=== PATIENT | female | born 1970 | race Caucasian/White ===

== ENCOUNTER 2016-05-18 12:04 | Emergency (ER) | payer OTHER ==
--- NOTE | 2016-05-18 16:25 | ED CLINICAL REPORT ---
Clinical Report - Physicians/Mid Levels [facility] [address] [place] [address] 05/18/2016 12:04 Patient: MELANIE BOONE Time Seen: 14:16 May 18 2016. Arrived- By private vehicle. Historian- patient. HISTORY OF PRESENT ILLNESS Chief Complaint: "GOT THE SHAKES". Wants to stop drug use and drinking. Symptoms started today. The patient has had chills, nausea and abdominal pain. No vomiting, diarrhea or agitation. Not confused. patient here in the ER, with report of substance abuse, drinking and drugs, has been doing over the last 2 years, once to stop use now. Reports pains aches, lightheadedness, nausea. The symptoms are described as mild. REVIEW OF SYSTEMS No headache, dizziness or skin abscess. No difficulty walking. All systems otherwise negative, except as recorded above. PAST HISTORY Problems: Bronchitis. Pedal Edema. Contact Dermatitis. Eauzp-Aavcapagr-Zdqmn Syndrome. Lifestyle / Substance Problems. Pneumonia. Heart Disease. Immunizations. LNMP - Last Normal Menstrual Period. COPD - Chronic Obstructive Pulmonary Disease [RuleOut]. Additional Surgeries: . Medications: None. Allergies: No Known Drug Allergy. SOCIAL HISTORY Alcohol use. (heavy drinking x 2 years, last use of 1/5th this am). History of heavy drug use last use 2 days prior: heroin. Has social support. Has place to stay. ADDITIONAL NOTES The nursing notes have been reviewed. PHYSICAL EXAM Vital Signs: 05/18/2016 12:09 BP: 151/91. HR: 110. RR: 22. O2 saturation: 99%. Temp: 98.8 F. Appearance: Alert. Head: Head atraumatic. Eyes: Pupils equal, round and reactive to light. ENT: Normal ENT inspection. Moist mucous membranes. No trouble handling secretions. The mucous membranes are not dry. Neck: Normal inspection. No meningeal signs. CVS: Normal heart rate and rhythm. Heart sounds normal. Respiratory: No respiratory distress. Abdomen: Soft. No obesity. Skin: Skin warm. Normal skin color. No rash. Neuro: Alert. Oriented X 3. No cerebellar findings. PROGRESS AND PROCEDURES Course of Care: Patient in the ER, with improvement of her symptoms, she is unsure of her plan for desires to stop use of alcohol, as well as heroin. At this time no seizures. No emesis, stable tolerating medications. Attempted IV draw for blood, however unable to do so, patient reports she is a difficult stick. Nonseptic at this time, eloped prior to her instructions, and discussion with me. 05/18/2016 16:09 BP: 149/98. HR: 94. RR: 20. O2 saturation: 99%. Temp: 98 F. Patient is stable. Symptoms better. Patient/family counseled. Disposition: Discharged. CLINICAL IMPRESSION Substance abuse. Substance dependence problems: dependence on alcohol and opiates. INSTRUCTIONS Stay with responsible adult family member (or other responsible adult). No alcohol. Prescription Medications: Zofran (orally disintegrating tablets) 4 mg: take 1 orally every 6 hours for 3 days as needed for nausea. Dispense ten (10). No refill. Substitution is permissible. Motrin 800 mg tablets: take 1 tablet orally every 8 hours for 5 days, as needed for pain. Dispense fifteen (15). No refill. Substitution is permissible. Phenergan 12.5 mg tablets: take 1 orally every 6 hours as needed for nausea. Dispense ten (10). No refill. Substitution is permissible Phenergan 12.5 mg suppositories: insert 1 rectally every 6 hours as needed for nausea or vomiting. Dispense ten (10). No refill. Substitution is permissible Ativan 0.5 mg: take 1 orally every 8 hours for 3 days as needed for anxiety. Dispense ten (10). No refill. OTC Medications: Tylenol ER 650 mg (available over the counter): take 1 orally every 6 hours for 5 days, as needed for pain. Dispense twenty (20). No refill. Substitution is permissible. Imodium 2 mg (available over the counter): for 3 days. Do not exceed 4 per day. Dispense twenty-four (24). No refills. Substitution is permissible. Follow-up: Follow up with your doctor in three. (Electronically signed by Pattie Galdamez P.A.-C 05/18/2016 20:10)
--- NOTE | 2016-05-18 16:25 | ED ORDER SUMMARY ---
..... Patient: MELANIE BOONE [facility] VisitID: [id number] [place] [address] 45y, F Registration Date/Time: 05/18/2016 ORDER SHEET Weight: 95.2 kg (stated) Allergies: No Known Drug Allergy GENERAL ORDERS: CBC w Diff Urgent (13:32 05/18/2016 EKoroleva P.A.-C) (Ack 13:33 LTapper) (Cancelled: Unable to Kjsmqiq05:05 GMarshall R.N.) Ethyl Alcohol Urgent (13:32 05/18/2016 EKoroleva P.A.-C) (Ack 13:33 LTapper) (Cancelled: Unable to Xgabbck01:05 GMarshall R.N.) Vitals (14:37 05/18/2016 EKoroleva P.A.-C) (Ack 14:41 LTapper) (17:05 GMarshall R.N.) Breathalyzer (14:52 05/18/2016 EKoroleva P.A.-C) (17:05 GMarshall R.N.) MEDICATION ORDERS: Zofran ODT PO 4 mg (NOW) (13:31 05/18/2016 EKoroleva P.A.-C) (13:49 GMarshall R.N.) Phenergan PO 25 mg (HIGH ALERT MEDICATION, NOW) (13:31 05/18/2016 EKoroleva P.A.-C) (13:50 GMarshall R.N.) Motrin PO 800 mg (NOW) (13:32 05/18/2016 EKoroleva P.A.-C) (13:50 GMarshall R.N.) Tylenol PO 650 mg (NOW) (13:32 05/18/2016 EKoroleva P.A.-C) (13:50 GMarshall R.N.) IV FLUIDS: ORDER SHEET NOTES: [Electronically signed by Fausto Fabian R.N. (19:45 05/18/2016)] [Electronically signed by Pattie GaldamezAMery-C (20:10 05/18/2016)] [Electronically locked/signed by Fausto Fabian R.N. (19:45 05/18/2016)]
--- NOTE | 2016-05-18 16:25 | ED CLINICAL REPORT ---
Clinical Report - Physicians/Mid Levels [facility] [address] [place] [address] 05/18/2016 12:04 Patient: MELANIE BOONE Time Seen: 14:16 May 18 2016. Arrived- By private vehicle. Historian- patient. HISTORY OF PRESENT ILLNESS Chief Complaint: "GOT THE SHAKES". Wants to stop drug use and drinking. Symptoms started today. The patient has had chills, nausea and abdominal pain. No vomiting, diarrhea or agitation. Not confused. patient here in the ER, with report of substance abuse, drinking and drugs, has been doing over the last 2 years, once to stop use now. Reports pains aches, lightheadedness, nausea. The symptoms are described as mild. REVIEW OF SYSTEMS No headache, dizziness or skin abscess. No difficulty walking. All systems otherwise negative, except as recorded above. PAST HISTORY Problems: Bronchitis. Pedal Edema. Contact Dermatitis. Tjgwl-Rggifoazo-Jfgjl Syndrome. Lifestyle / Substance Problems. Pneumonia. Heart Disease. Immunizations. LNMP - Last Normal Menstrual Period. COPD - Chronic Obstructive Pulmonary Disease [RuleOut]. Additional Surgeries: . Medications: None. Allergies: No Known Drug Allergy. SOCIAL HISTORY Alcohol use. (heavy drinking x 2 years, last use of 1/5th this am). History of heavy drug use last use 2 days prior: heroin. Has social support. Has place to stay. ADDITIONAL NOTES The nursing notes have been reviewed. PHYSICAL EXAM Vital Signs: 05/18/2016 12:09 BP: 151/91. HR: 110. RR: 22. O2 saturation: 99%. Temp: 98.8 F. Appearance: Alert. Head: Head atraumatic. Eyes: Pupils equal, round and reactive to light. ENT: Normal ENT inspection. Moist mucous membranes. No trouble handling secretions. The mucous membranes are not dry. Neck: Normal inspection. No meningeal signs. CVS: Normal heart rate and rhythm. Heart sounds normal. Respiratory: No respiratory distress. Abdomen: Soft. No obesity. Skin: Skin warm. Normal skin color. No rash. Neuro: Alert. Oriented X 3. No cerebellar findings. PROGRESS AND PROCEDURES Course of Care: Patient in the ER, with improvement of her symptoms, she is unsure of her plan for desires to stop use of alcohol, as well as heroin. At this time no seizures. No emesis, stable tolerating medications. Attempted IV draw for blood, however unable to do so, patient reports she is a difficult stick. Nonseptic at this time, eloped prior to her instructions, and discussion with me. 05/18/2016 16:09 BP: 149/98. HR: 94. RR: 20. O2 saturation: 99%. Temp: 98 F. Patient is stable. Symptoms better. Patient/family counseled. Disposition: Discharged. CLINICAL IMPRESSION Substance abuse. Substance dependence problems: dependence on alcohol and opiates. INSTRUCTIONS Stay with responsible adult family member (or other responsible adult). No alcohol. Prescription Medications: Zofran (orally disintegrating tablets) 4 mg: take 1 orally every 6 hours for 3 days as needed for nausea. Dispense ten (10). No refill. Substitution is permissible. Motrin 800 mg tablets: take 1 tablet orally every 8 hours for 5 days, as needed for pain. Dispense fifteen (15). No refill. Substitution is permissible. Phenergan 12.5 mg tablets: take 1 orally every 6 hours as needed for nausea. Dispense ten (10). No refill. Substitution is permissible Phenergan 12.5 mg suppositories: insert 1 rectally every 6 hours as needed for nausea or vomiting. Dispense ten (10). No refill. Substitution is permissible Ativan 0.5 mg: take 1 orally every 8 hours for 3 days as needed for anxiety. Dispense ten (10). No refill. OTC Medications: Tylenol ER 650 mg (available over the counter): take 1 orally every 6 hours for 5 days, as needed for pain. Dispense twenty (20). No refill. Substitution is permissible. Imodium 2 mg (available over the counter): for 3 days. Do not exceed 4 per day. Dispense twenty-four (24). No refills. Substitution is permissible. Follow-up: Follow up with your doctor in three. (Electronically signed by Pattie Galdamez P.A.-C 05/18/2016 20:10)
--- NOTE | 2016-05-18 16:25 | ED NURSING NOTES ---
Clinical Report - Nurses [facility] [place] [address] [address] 05/18/2016 12:04 Patient: MELANIE BOONE TRIAGE Triage time 12:09. Acuity: LEVEL 3. Alert. No acute distress. --12:14 Fausto Fabian R.N. 12:09 05/18/16. BP: 151/91. HR: 110. RR: 22. O2 saturation: 99%. Temp: 98.8 F. Pain level now 02/09. --12:14 Fausto Fabian R.N. Chief Complaint: (Withdrawing from Heroin). --19:44 Fausto Fabian R.N. Weight: 95.2 kg stated. Height/Length: 108 inches Per Patient. BMI: 12.7. --12:13 Fausto Fabian R.N. Medications None. --12:12 Fausto Fabian R.N. Allergies No Known Drug Allergy. --12:12 Fausto Fabian R.N. History Arrived by EMS. Historian: patient. ( Patient states is withdrawing from heroin and alcohol. Has a 1 gram approximately, heroine habit 2-3 times per day, has not used since Wednesday. Believes she is perhaps withdrawing from ETOH as well. Drank 1 pint jaggermister this morning but threw most of it up). This started just prior to arrival. Treatment CLINICAL QUALITY RN: None. SOCIAL HX: Smoker- current status unknown. Alcohol use. History of drug use: heroin. --12:14 Fausto Fabian R.N. PROBLEMS: Bronchitis. Pedal Edema. Contact Dermatitis. Zpbrr-Axtrecihy-Svait Syndrome. Lifestyle / Substance Problems. Pneumonia. Heart Disease. Immunizations. LNMP - Last Normal Menstrual Period. --12:12 Fausto Fabian R.N. COPD - Chronic Obstructive Pulmonary Disease [RuleOut]. --12:12 Fausto Fabian R.N. Interventions ID band on patient. --12:14 Fausto Fabian R.N. PHYSICAL ASSESSMENT ( Pacing. Unable to sit still. States she believes she has been hallucinating.). GENERAL / NEURO / PSYCH: Alert. Oriented X 4. Appears anxious and in distress. RESPIRATORY: Respirations not labored. Breath sounds within normal limits. GI / : Abdomen soft. SKIN: Skin is warm and dry. --12:15 Fausto Fabian R.N. NURSING PROGRESS NOTES 13:49 05/18/2016 Zofran ODT (Ondansetron) PO Oral Disintegrating Tablets 4 mg given. --13:49 Fausto Fabian R.N. 13:50 05/18/2016 Phenergan (Promethazine HCl) PO Tablets 25 mg given. --13:50 Fausto Fabian R.N. 13:50 05/18/2016 Motrin PO Tablets 800 mg given. --13:50 Fausto Fabian R.N. 13:50 05/18/2016 Tylenol (Acetaminophen) PO Tablets 650 mg given. --13:50 Fausto Fabian R.N. 14:45 05/18/16. BP: 147/91 (regular adult cuff) taken on the right arm, via an automated monitor, while sitting. HR: 105. RR: 20. O2 saturation: 98% on room air. Temp: 99.4 F (oral). RN notified. Pain level now: 01/10. --14:47 Chery Cali ( breathalyzer .000). --14:57 Jose Juan Morrison ( Several more unsuccessful attempts were made at venipuncture.). --16:11 Fausto Fabian R.N. 16:09 05/18/16. BP: 149/98. HR: 94. RR: 20. O2 saturation: 99%. Temp: 98 F. Pain level now 11/09. --16:11 Fausto Fabian R.N. DISPOSITION / DISCHARGE ( Patient eloped. Before she eloped, I had a candid conversation with patient about her plan and options. Patient believes she is far enough into her withdrawal that it would be pointless to go to med detox at [place]. States I will try to do it with Ibuprofen, Tylenol and Benedryl. States I think I can do this. Appears to have strong support system.). --19:44 Fausto Fabian R.N. Locked/Released at 05/18/2016 19:45 by Fausto Fabian R.N.
--- NOTE | 2016-05-18 16:25 | ED ORDER SUMMARY ---
..... Patient: MELANIE BOONE OrderSheet [facility] VisitID: [id number] [place] [address] 45y, F Registration Date/Time: 05/18/2016 ORDER SHEET Weight: 95.2 kg (stated) Allergies: No Known Drug Allergy GENERAL ORDERS: CBC w Diff Urgent (13:32 05/18/2016 EKoroleva P.A.-C) (Ack 13:33 LTapper) (Cancelled: Unable to Bedrzka79:05 GMarshall R.N.) Ethyl Alcohol Urgent (13:32 05/18/2016 EKoroleva P.A.-C) (Ack 13:33 LTapper) (Cancelled: Unable to Nmewkql48:05 GMarshall R.N.) Vitals (14:37 05/18/2016 EKoroleva P.A.-C) (Ack 14:41 LTapper) (17:05 GMarshall R.N.) Breathalyzer (14:52 05/18/2016 EKoroleva P.A.-C) (17:05 GMarshall R.N.) MEDICATION ORDERS: Zofran ODT PO 4 mg (NOW) (13:31 05/18/2016 EKoroleva P.A.-C) (13:49 GMarshall R.N.) Phenergan PO 25 mg (HIGH ALERT MEDICATION, NOW) (13:31 05/18/2016 EKoroleva P.A.-C) (13:50 GMarshall R.N.) Motrin PO 800 mg (NOW) (13:32 05/18/2016 EKoroleva P.A.-C) (13:50 GMarshall R.N.) Tylenol PO 650 mg (NOW) (13:32 05/18/2016 EKoroleva P.A.-C) (13:50 GMarshall R.N.) IV FLUIDS: ORDER SHEET NOTES: [Electronically signed by Fausto Fabian R.N. (19:45 05/18/2016)] [Electronically signed by Pattie GaldamezAMery-C (20:10 05/18/2016)] [Electronically locked/signed by Fausto Fabian R.N. (19:45 05/18/2016)]
--- NOTE | 2016-05-18 16:25 | ED NURSING NOTES ---
Clinical Report - Nurses [facility] [place] [address] 05/18/2016 12:04 Patient: MELANIE BOONE TRIAGE Triage time 12:09. Acuity: LEVEL 3. Alert. No acute distress. --12:14 Fausto Fabian R.N. 12:09 05/18/16. BP: 151/91. HR: 110. RR: 22. O2 saturation: 99%. Temp: 98.8 F. Pain level now 02/09. --12:14 Fausto Fabian R.N. Chief Complaint: (Withdrawing from Heroin). --19:44 Fausto Fabian R.N. Weight: 95.2 kg stated. Height/Length: 108 inches Per Patient. BMI: 12.7. --12:13 Fausto Fabian R.N. Medications None. --12:12 Fausto Fabian R.N. Allergies No Known Drug Allergy. --12:12 Fausto Fabian R.N. History Arrived by EMS. Historian: patient. ( Patient states is withdrawing from heroin and alcohol. Has a 1 gram approximately, heroine habit 2-3 times per day, has not used since Wednesday. Believes she is perhaps withdrawing from ETOH as well. Drank 1 pint jaggermister this morning but threw most of it up). This started just prior to arrival. Treatment DEVOPS ARCHITECT: None. SOCIAL HX: Smoker- current status unknown. Alcohol use. History of drug use: heroin. --12:14 Fausto Fabian R.N. PROBLEMS: Bronchitis. Pedal Edema. Contact Dermatitis. Qxyen-Uapeqxvox-Cwmxy Syndrome. Lifestyle / Substance Problems. Pneumonia. Heart Disease. Immunizations. LNMP - Last Normal Menstrual Period. --12:12 Fausto Fabian R.N. COPD - Chronic Obstructive Pulmonary Disease [RuleOut]. --12:12 Fausto Fabian R.N. Interventions ID band on patient. --12:14 Fausto Fabian R.N. PHYSICAL ASSESSMENT ( Pacing. Unable to sit still. States she believes she has been hallucinating.). GENERAL / NEURO / PSYCH: Alert. Oriented X 4. Appears anxious and in distress. RESPIRATORY: Respirations not labored. Breath sounds within normal limits. GI / : Abdomen soft. SKIN: Skin is warm and dry. --12:15 Fausto Fabian R.N. NURSING PROGRESS NOTES 13:49 05/18/2016 Zofran ODT (Ondansetron) PO Oral Disintegrating Tablets 4 mg given. --13:49 Fausto Fabian R.N. 13:50 05/18/2016 Phenergan (Promethazine HCl) PO Tablets 25 mg given. --13:50 Fausto Fabian R.N. 13:50 05/18/2016 Motrin PO Tablets 800 mg given. --13:50 Fausto Fabian R.N. 13:50 05/18/2016 Tylenol (Acetaminophen) PO Tablets 650 mg given. --13:50 Fausto Fabian R.N. 14:45 05/18/16. BP: 147/91 (regular adult cuff) taken on the right arm, via an automated monitor, while sitting. HR: 105. RR: 20. O2 saturation: 98% on room air. Temp: 99.4 F (oral). RN notified. Pain level now: 01/10. --14:47 Chery Cali ( breathalyzer .000). --14:57 Jose Juan Morrison ( Several more unsuccessful attempts were made at venipuncture.). --16:11 Fausto Fabian R.N. 16:09 05/18/16. BP: 149/98. HR: 94. RR: 20. O2 saturation: 99%. Temp: 98 F. Pain level now 11/09. --16:11 Fausto Fabian R.N. DISPOSITION / DISCHARGE ( Patient eloped. Before she eloped, I had a candid conversation with patient about her plan and options. Patient believes she is far enough into her withdrawal that it would be pointless to go to med detox at [place]. States I will try to do it with Ibuprofen, Tylenol and Benedryl. States I think I can do this. Appears to have strong support system.). --19:44 Fausto Fabian R.N. Locked/Released at 05/18/2016 19:45 by Fausto Fabian R.N.
--- NOTE | 2016-05-18 20:11 | ED MAR SUMMARY ---
..... Medication Administration Record [facility] [address] [place] [address] Patient: MELANIE BOONE Visit ID: [id number] 45y, F Weight: 95.2 kg Height/Length: 108 in BMI: 12.7 ALLERGIES: No Known Drug Allergy Given 13:49 05/18/2016 Fausto Fabian R.N. Medication Administered: ZOFRAN ODT [PO] (ONDANSETRON), Dose: 4 mg Oral Disintegrating Tablets PO. Medication Ordered: Zofran ODT PO 4 mg (NOW). Given 13:50 05/18/2016 Fausto Fabian R.N. Medication Administered: PHENERGAN [PO] (PROMETHAZINE HCL), Dose: 25 mg Tablets PO. Medication Ordered: Phenergan PO 25 mg (HIGH ALERT MEDICATION, NOW). Given 13:50 05/18/2016 Fausto Fabian R.N. Medication Administered: MOTRIN [PO], Dose: 800 mg Tablets PO. Medication Ordered: Motrin PO 800 mg (NOW). Given 13:50 05/18/2016 Fausto Fabian R.N. Medication Administered: TYLENOL [PO] (ACETAMINOPHEN), Dose: 650 mg Tablets PO. Medication Ordered: Tylenol PO 650 mg (NOW).
--- NOTE | 2016-05-18 20:11 | ED MED RECONCILIATION SUMMARY ---
Patient: MELANIE BOONE Medication Reconciliation Report [facility] VisitID: [id number] [place] [address] 45y, F Registration Date/Time: 05/18/2016 Weight: 95.2 kg Height/Length: 108 in. BMI: 12.7 ALLERGIES: No Known Drug Allergy The patient's Home Medications are listed below: NONE. The source(s) of the original Home Medication information: Not obtained. The following Medications were given to the patient in the Emergency Department: Zofran ODT [PO] PO 4 mg, administered: 05/18/2016 1:49:00 PM Phenergan [PO] PO 25 mg, administered: 05/18/2016 1:50:00 PM Motrin [PO] PO 800 mg, administered: 05/18/2016 1:50:00 PM Tylenol [PO] PO 650 mg, administered: 05/18/2016 1:50:00 PM The following Medications were prescribed to the patient: Zofran (orally disintegrating tablets) 4 mg: take 1 orally every 6 hours for 3 days as needed for nausea. Dispense ten (10). No refill. Substitution is permissible. -- Koroleva, Pattie, P.A.-C Motrin 800 mg tablets: take 1 tablet orally every 8 hours for 5 days, as needed for pain. Dispense fifteen (15). No refill. Substitution is permissible. -- Koroleva, Pattie, P.A.-C Tylenol ER 650 mg (available over the counter): take 1 orally every 6 hours for 5 days, as needed for pain. Dispense twenty (20). No refill. Substitution is permissible. -- Koroleva, Pattie, P.A.-C Phenergan 12.5 mg tablets: take 1 orally every 6 hours as needed for nausea. Dispense ten (10). No refill. Substitution is permissible -- Koroleva, Pattie, P.A.-C Phenergan 12.5 mg suppositories: insert 1 rectally every 6 hours as needed for nausea or vomiting. Dispense ten (10). No refill. Substitution is permissible -- Koroleva, Pattie, P.ARubi Imodium 2 mg (available over the counter): for 3 days. Do not exceed 4 per day. Dispense twenty-four (24). No refills. Substitution is permissible. -- Pattie Galdamez P.ARubi Ativan 0.5 mg: take 1 orally every 8 hours for 3 days as needed for anxiety. Dispense ten (10). No refill. -- Pattie Galdamez P.A.-C
--- NOTE | 2016-05-18 20:11 | ED DISCHARGE INSTRUCTIONS ---
Patient: MELANIE BOONE General Instructions [facility] VisitID: [id number] [place] [address] 45y, F Registration Date/Time: 05/18/2016 Substance abuse. Substance dependence problems: dependence on alcohol and opiates. INSTRUCTIONS Stay with responsible adult family member (or other responsible adult). No alcohol. Prescription Medications: Zofran (orally disintegrating tablets) 4 mg: take 1 orally every 6 hours for 3 days as needed for nausea. Dispense ten (10). No refill. Substitution is permissible. Motrin 800 mg tablets: take 1 tablet orally every 8 hours for 5 days, as needed for pain. Dispense fifteen (15). No refill. Substitution is permissible. Phenergan 12.5 mg tablets: take 1 orally every 6 hours as needed for nausea. Dispense ten (10). No refill. Substitution is permissible Phenergan 12.5 mg suppositories: insert 1 rectally every 6 hours as needed for nausea or vomiting. Dispense ten (10). No refill. Substitution is permissible Ativan 0.5 mg: take 1 orally every 8 hours for 3 days as needed for anxiety. Dispense ten (10). No refill. OTC Medications: Tylenol ER 650 mg (available over the counter): take 1 orally every 6 hours for 5 days, as needed for pain. Dispense twenty (20). No refill. Substitution is permissible. Imodium 2 mg (available over the counter): for 3 days. Do not exceed 4 per day. Dispense twenty-four (24). No refills. Substitution is permissible. Follow-up: Follow up with your doctor in three. ADDITIONAL INFORMATION Alcohol Withdrawal Alcohol withdrawal symptoms occur if you have been drinking steadily for at least several days, and your body gets used to the effect of alcohol. When you suddenly stop drinking (or, even just cut down your daily intake but continue to drink), you may develop alcohol withdrawal, also called the The usual symptoms last 3-4 days and include nervousness, shakiness, nausea, sweating, sleeplessness. In severe cases hallucinations (seeing things that are not there) and seizures can occur. Home Care: You will need plenty of rest and fluids over the next several days. Eat regular meals. Of course, do not drink any more alcohol. During this time, it is best that you stay with family or friends who can help and support you. You can also admit yourself to a residential detox program. Do not drive until all symptoms are gone and you are feeling better. If you were given sedative medication to reduce your symptoms, do not take it more often than prescribed and never take it with alcohol. Follow Up: Once you have gone through the withdrawal symptoms, you have fought half of the miller. To avoid the risk of returning to your previous drinking pattern, it is essential that you get follow-up support and treatment. Alcoholics Anonymous offers support through a self-help fellowship. There are no dues or fees. See the Yellow Pages and call for time and place of meetings. www.aa.org [employer] offers support to families of alcohol users. [phone] www.al-anon.org National [place] On Alcoholism And Drug Dependence 373-871-3758 www.ncadd.org Residential alcohol detox programs are available. Check the Yellow Pages under Drug Abuse & Treatment Centers. Get Prompt Medical Attention if any of the following occur: Severe shakiness Hallucinations Seizure Fever over 100.5 F (38.0 C) oral Headache, confusion, extreme drowsiness, inability to awaken Increasing upper abdominal pain Repeated vomiting or vomiting blood Ondansetron Hydrochloride Oral tablet What is this medicine? ONDANSETRON (on VIRAJ se kike) is used to treat nausea and vomiting caused by chemotherapy. It is also used to prevent or treat nausea and vomiting after surgery. How should I use this medicine? Take this medicine by mouth with a glass of water. Follow the directions on your prescription label. Take your doses at regular intervals. Do not take your medicine more often than directed. Talk to your freelance patternmaker regarding the use of this medicine in children. Special care may be needed. What side effects may I notice from receiving this medicine? Side effects that you should report to your doctor or health patient care associate as soon as possible: allergic reactions like skin rash, itching or hives, swelling of the face, lips or tongue breathing problems dizziness fast or irregular heartbeat feeling faint or lightheaded, falls fever and chills swelling of the hands or feet tightness in the chest Side effects that usually do not require medical attention (report to your doctor or health patient care associate if they continue or are bothersome): constipation or diarrhea headache What may interact with this medicine? Do not take this medicine with any of the following medications: -apomorphine -cisapride -dofetilide -dronedarone -pimozide -thioridazine -ziprasidone This medicine may also interact with the following medications: -carbamazepine -phenytoin -rifampicin -tramadol -other medicines that prolong the QT interval (cause an abnormal heart rhythm) What if I miss a dose? If you miss a dose, take it as soon as you can. If it is almost time for your next dose, take only that dose. Do not take double or extra doses. Where should I keep my medicine? Keep out of the reach of children. Store between 2 and 30 degrees C (36 and 86 degrees F). Throw away any unused medicine after the expiration date. What should I tell my health care provider before I take this medicine? They need to know if you have any of these conditions: heart disease history of irregular heartbeat liver disease low levels of magnesium or potassium in the blood an unusual or allergic reaction to ondansetron, granisetron, other medicines, foods, dyes, or preservatives or trying to get breast-feeding What should I watch for while using this medicine? Check with your doctor or health patient care associate right away if you have any sign of an allergic reaction. You have been given the following additional information: Alcohol Withdrawal Ondansetron Hydrochloride Oral tablet Stay with responsible adult family member (or other responsible adult). (Electronically signed by Pattie Galdamez P.A.-C 05/18/2016 20:10)
--- NOTE | 2016-05-18 20:11 | ED MAR SUMMARY ---
..... Medication Administration Record [facility] [address] [place] [address] Patient: MELANIE BOONE Visit ID: [id number] 45y, F Weight: 95.2 kg Height/Length: 108 in BMI: 12.7 ALLERGIES: No Known Drug Allergy Given 13:49 05/18/2016 Fausto Fabian R.N. Medication Administered: ZOFRAN ODT [PO] (ONDANSETRON), Dose: 4 mg Oral Disintegrating Tablets PO. Medication Ordered: Zofran ODT PO 4 mg (NOW). Given 13:50 05/18/2016 Fausto Fabian R.N. Medication Administered: PHENERGAN [PO] (PROMETHAZINE HCL), Dose: 25 mg Tablets PO. Medication Ordered: Phenergan PO 25 mg (HIGH ALERT MEDICATION, NOW). Given 13:50 05/18/2016 Fausto Fabian R.N. Medication Administered: MOTRIN [PO], Dose: 800 mg Tablets PO. Medication Ordered: Motrin PO 800 mg (NOW). Given 13:50 05/18/2016 Fausto Fabian R.N. Medication Administered: TYLENOL [PO] (ACETAMINOPHEN), Dose: 650 mg Tablets PO. Medication Ordered: Tylenol PO 650 mg (NOW).
--- NOTE | 2016-05-18 20:11 | ED DISCHARGE INSTRUCTIONS ---
Patient: MELANIE BOONE General Instructions [facility] VisitID: [id number] [place] [address] 45y, F Registration Date/Time: 05/18/2016 Substance abuse. Substance dependence problems: dependence on alcohol and opiates. INSTRUCTIONS Stay with responsible adult family member (or other responsible adult). No alcohol. Prescription Medications: Zofran (orally disintegrating tablets) 4 mg: take 1 orally every 6 hours for 3 days as needed for nausea. Dispense ten (10). No refill. Substitution is permissible. Motrin 800 mg tablets: take 1 tablet orally every 8 hours for 5 days, as needed for pain. Dispense fifteen (15). No refill. Substitution is permissible. Phenergan 12.5 mg tablets: take 1 orally every 6 hours as needed for nausea. Dispense ten (10). No refill. Substitution is permissible Phenergan 12.5 mg suppositories: insert 1 rectally every 6 hours as needed for nausea or vomiting. Dispense ten (10). No refill. Substitution is permissible Ativan 0.5 mg: take 1 orally every 8 hours for 3 days as needed for anxiety. Dispense ten (10). No refill. OTC Medications: Tylenol ER 650 mg (available over the counter): take 1 orally every 6 hours for 5 days, as needed for pain. Dispense twenty (20). No refill. Substitution is permissible. Imodium 2 mg (available over the counter): for 3 days. Do not exceed 4 per day. Dispense twenty-four (24). No refills. Substitution is permissible. Follow-up: Follow up with your doctor in three. ADDITIONAL INFORMATION Alcohol Withdrawal Alcohol withdrawal symptoms occur if you have been drinking steadily for at least several days, and your body gets used to the effect of alcohol. When you suddenly stop drinking (or, even just cut down your daily intake but continue to drink), you may develop alcohol withdrawal, also called the The usual symptoms last 3-4 days and include nervousness, shakiness, nausea, sweating, sleeplessness. In severe cases hallucinations (seeing things that are not there) and seizures can occur. Home Care: You will need plenty of rest and fluids over the next several days. Eat regular meals. Of course, do not drink any more alcohol. During this time, it is best that you stay with family or friends who can help and support you. You can also admit yourself to a residential detox program. Do not drive until all symptoms are gone and you are feeling better. If you were given sedative medication to reduce your symptoms, do not take it more often than prescribed and never take it with alcohol. Follow Up: Once you have gone through the withdrawal symptoms, you have fought half of the miller. To avoid the risk of returning to your previous drinking pattern, it is essential that you get follow-up support and treatment. Alcoholics Anonymous offers support through a self-help fellowship. There are no dues or fees. See the Yellow Pages and call for time and place of meetings. www.aa.org [employer] offers support to families of alcohol users. 904.473.1909 www.al-anon.org National [place] On Alcoholism And Drug Dependence 439-967-4988 www.ncadd.org Residential alcohol detox programs are available. Check the Yellow Pages under Drug Abuse & Treatment Centers. Get Prompt Medical Attention if any of the following occur: Severe shakiness Hallucinations Seizure Fever over 100.5 F (38.0 C) oral Headache, confusion, extreme drowsiness, inability to awaken Increasing upper abdominal pain Repeated vomiting or vomiting blood Ondansetron Hydrochloride Oral tablet What is this medicine? ONDANSETRON (on VIRAJ se kike) is used to treat nausea and vomiting caused by chemotherapy. It is also used to prevent or treat nausea and vomiting after surgery. How should I use this medicine? Take this medicine by mouth with a glass of water. Follow the directions on your prescription label. Take your doses at regular intervals. Do not take your medicine more often than directed. Talk to your mold press operator regarding the use of this medicine in children. Special care may be needed. What side effects may I notice from receiving this medicine? Side effects that you should report to your doctor or health healthcare liaison as soon as possible: allergic reactions like skin rash, itching or hives, swelling of the face, lips or tongue breathing problems dizziness fast or irregular heartbeat feeling faint or lightheaded, falls fever and chills swelling of the hands or feet tightness in the chest Side effects that usually do not require medical attention (report to your doctor or health healthcare liaison if they continue or are bothersome): constipation or diarrhea headache What may interact with this medicine? Do not take this medicine with any of the following medications: -apomorphine -cisapride -dofetilide -dronedarone -pimozide -thioridazine -ziprasidone This medicine may also interact with the following medications: -carbamazepine -phenytoin -rifampicin -tramadol -other medicines that prolong the QT interval (cause an abnormal heart rhythm) What if I miss a dose? If you miss a dose, take it as soon as you can. If it is almost time for your next dose, take only that dose. Do not take double or extra doses. Where should I keep my medicine? Keep out of the reach of children. Store between 2 and 30 degrees C (36 and 86 degrees F). Throw away any unused medicine after the expiration date. What should I tell my health care provider before I take this medicine? They need to know if you have any of these conditions: heart disease history of irregular heartbeat liver disease low levels of magnesium or potassium in the blood an unusual or allergic reaction to ondansetron, granisetron, other medicines, foods, dyes, or preservatives or trying to get breast-feeding What should I watch for while using this medicine? Check with your doctor or health healthcare liaison right away if you have any sign of an allergic reaction. You have been given the following additional information: Alcohol Withdrawal Ondansetron Hydrochloride Oral tablet Stay with responsible adult family member (or other responsible adult). (Electronically signed by Pattie Galdamez P.A.-C 05/18/2016 20:10)
--- NOTE | 2016-05-18 20:11 | ED MED RECONCILIATION SUMMARY ---
Patient: MELANIE BOONE Medication Reconciliation Report [facility] VisitID: [id number] [place] [address] 45y, F Registration Date/Time: 05/18/2016 Weight: 95.2 kg Height/Length: 108 in. BMI: 12.7 ALLERGIES: No Known Drug Allergy The patient's Home Medications are listed below: NONE. The source(s) of the original Home Medication information: Not obtained. The following Medications were given to the patient in the Emergency Department: Zofran ODT [PO] PO 4 mg, administered: 05/18/2016 1:49:00 PM Phenergan [PO] PO 25 mg, administered: 05/18/2016 1:50:00 PM Motrin [PO] PO 800 mg, administered: 05/18/2016 1:50:00 PM Tylenol [PO] PO 650 mg, administered: 05/18/2016 1:50:00 PM The following Medications were prescribed to the patient: Zofran (orally disintegrating tablets) 4 mg: take 1 orally every 6 hours for 3 days as needed for nausea. Dispense ten (10). No refill. Substitution is permissible. -- Koroleva, Pattie, P.A.-C Motrin 800 mg tablets: take 1 tablet orally every 8 hours for 5 days, as needed for pain. Dispense fifteen (15). No refill. Substitution is permissible. -- Koroleva, Pattie, P.A.-C Tylenol ER 650 mg (available over the counter): take 1 orally every 6 hours for 5 days, as needed for pain. Dispense twenty (20). No refill. Substitution is permissible. -- Koroleva, Pattie, P.A.-C Phenergan 12.5 mg tablets: take 1 orally every 6 hours as needed for nausea. Dispense ten (10). No refill. Substitution is permissible -- Koroleva, Pattie, P.A.-C Phenergan 12.5 mg suppositories: insert 1 rectally every 6 hours as needed for nausea or vomiting. Dispense ten (10). No refill. Substitution is permissible -- Koroleva, Pattie, P.ARubi Imodium 2 mg (available over the counter): for 3 days. Do not exceed 4 per day. Dispense twenty-four (24). No refills. Substitution is permissible. -- Pattie Galdamez P.ARubi Ativan 0.5 mg: take 1 orally every 8 hours for 3 days as needed for anxiety. Dispense ten (10). No refill. -- Pattie Galdamez P.A.-C
== END 2016-05-18 17:11 | disposition home or self-care (01) ==
LOC: ED SRH 12:04
DX: F10.20 Alcohol dependence, uncomplicated (principal); F11.20 Opioid dependence, uncomplicated